=== PATIENT | male | born 1970 | race Caucasian/White ===

== ENCOUNTER → 2016-11-29 | Outpatient (CLI) | payer OTHER ==
--- NOTE | 2016-11-29 10:20 | XR ---
EXAMINATION TYPE: XR knee complete RT DATE OF EXAM: 11/29/2016 COMPARISON: NONE HISTORY: 46-year-old male with right knee pain after twisting injury. TECHNIQUE: 3 views FINDINGS: There is mild degenerative spurring in the medial compartment. There is a small knee joint effusion. Extensor mechanism appears intact. No acute fracture, subluxation, or dislocation seen. IMPRESSION: 1. Mild degenerative change in the medial compartment. 2. Small knee joint effusion is nonspecific. If concern for internal derangement, MRI can be consider ed. 3. No acute osseous abnormality.
== END | disposition home or self-care (01) ==
LOC: RADXRMAIN 10:01 → EDBD 10:01
PROVIDERS: ATTEND Emergency Medicine
DX: M25.861 Other specified joint disorders, right knee (principal); M25.461 Effusion, right knee; S83.8X1A Sprain of other specified parts of right knee, initial encounter

== ENCOUNTER → 2021-09-13 | Outpatient (CLI) | payer OTHER ==
--- NOTE | 2021-09-14 10:37 | EST ---
EXERCISE STRESS INDICATION: Dyslipidemia and abnormal EKG. AGE: 50 SEX: M HT: 5'5"` WT: 264 lbs. PROTOCOL: STAGE: 3 DURATION OF EXERCISE: 9:00 HEART RATE REST: 84 BLOOD PRESSURE REST: 142/84 MAXIMUM HEART RATE ACHIEVED: 170 MAXIMUM BLOOD PRESSURE: 207/93 85% MPHR: 143 100% MPHR: 168 METS: 10.3 RESULTS: Baseline EKG shows sinus rhythm, normal axis, normal intervals. Patient exercised on Deyvi protocol for a total of 9 minutes achieving 10 METS, 85% of predicted maximal heart rate, without chest pain or diagnostic ST-segment depression. CONCLUSIONS: 1. Good exercise tolerance. 2. Negative stress test by EKG criteria. MMODL / IJN: [id number] /
== END | disposition home or self-care (01) ==
LOC: RADNMMAIN 07:26
PROVIDERS: ATTEND Family Medicine
DX: R94.31 Abnormal electrocardiogram [ECG] [EKG] (principal)
CPT/HCPCS: 93017